=== PATIENT | male | born 1995 | race Hispanic/Latino ===

== ENCOUNTER → 2019-02-07 | Day surgery (SDC) | payer OTHER ==
[~2019-02-07] MED LIST: ACETAMINOPHEN325 M1 PO; BUPIVACAINE HCL 0.5% INJ 30 ML VIAL INJ ONE; CEFAZOLIN SOD 1 GM/NS 50ML 50 ML IV ONE; DEXAMETHASONE SOD PHOS INJ 4 MG/ML VIAL ONE; FENTANYL CITRATE/PF 100MCG/2 ML INJ ONE; HYDROMORPHONE 2MG/ML 2 MG/ML ML ONE; KETOROLAC TROMETHAMINE 30 MG/ML VIAL ONE; LIDOCAINE HCL 2% LOCAL INJ 5 ML SDV VIAL INJ ONE; METOCLOPRAMIDE HCL 10 MG/2ML VIAL ONE; MIDAZOLAM HCL 2 MG/2 ML VIAL ONE; ONDANSETRON HCL INJ 2MG/ML 2ML 2 MG/ML VIAL ONE; PROPOFOL IV EMULSION 10 MG/ML 20 ML VIAL ONE; SEVOFLURANE INHAL SOLN 250 ML PEN BTL ONE; TESTOSTERO100 MG/1 M IM; TYLENOL WITH C1 EACH PO; ZOFRAN8 MG PO
--- OUTSIDE RECORDS SUMMARY | 2019-02-07 09:58 | XMS REPORT ---
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 Conditions or Problems Problem Name Problem Code Onset Date Status Entry Date Provider Comment Standard Description Annotate Dyslipidemia 272.4 Active Jordan Norwood'Onofre ENGINE EMISSION TECHNICIAN-C Other and unspecified hyperlipidemia Prediabetes 790.29 Active Justin Ng ENGINE EMISSION TECHNICIAN Other abnormal glucose Vitamin D deficiency 268.9 Active Justin Sánchezarberg ENGINE EMISSION TECHNICIAN Unspecified vitamin D deficiency Hormone imbalance 259.9 Active Jordan Norwood'Onofre ENGINE EMISSION TECHNICIAN-C Unspecified endocrine disorder transmasculine Morbid obesity 278.01 Active Justin Ng ENGINE EMISSION TECHNICIAN Morbid obesity Other specified counseling ICD-V65.49 Inactive Jordan Norwood'Onofre ENGINE EMISSION TECHNICIAN-C Prolonged menstruation ICD-626.2 Inactive Jordan Elier Enma'Onofre ENGINE EMISSION TECHNICIAN-C Hormone disorder 259.9 Inactive Justin Ng ENGINE EMISSION TECHNICIAN Unspecified endocrine disorder Hx of anemia ICD-V12.3 Inactive Jordan Elier Enma'Onofre ENGINE EMISSION TECHNICIAN-C Other specified counseling V65.49 Resolved Jordan Norwood'Onofre ENGINE EMISSION TECHNICIAN-C Other specified counseling Prolonged menstruation 626.2 Resolved Jordan Norwood'Onofre ENGINE EMISSION TECHNICIAN-C Excessive or frequent menstruation Hx of anemia V12.3 Resolved Jordan Elire Low ENGINE EMISSION TECHNICIAN-C Personal history of diseases of blood and blood-forming organs Medication List Medication Instructions Start Date Stop Date Generic Name NDC Status Provider Patient Instruction BD ECLIPSE SYRINGE 25G X 5/8" 1 ML use as directed SYRINGE/NEEDLE (DISP) 85030783032 Active Justin Ng ENGINE EMISSION TECHNICIAN Active TESTOSTERONE CYPIONATE 200 MG/ML INTRAMUSCULAR SOLUTION Inject 100mg (0.5mL) SC weekly TESTOSTERONE CYPIONATE 49657540174 Active Jordan Low ENGINE EMISSION TECHNICIAN-C Active VITAMIN D (ERGOCALCIFEROL) 16823 UNIT ORAL CAPSULE One tablet by mouth once per week ERGOCALCIFEROL [id number] Active Jordan Low ENGINE EMISSION TECHNICIAN-C Active Immunizations Vaccine Administration Date Value Standard Description Human Papillomavirus vaccine (Gardasil) #3, (HPV #3) given human papilloma virus vaccine, quadrivalent Human Papillomavirus vaccine (Gardasil) #3, (HPV #3) Drug Name Gardasil 9 human papilloma virus vaccine, quadrivalent Human Papillomavirus vaccine (Gardasil) #2, (HPV #2) given human papilloma virus vaccine, quadrivalent Human Papillomavirus vaccine (Gardasil) #2, (HPV #2) Drug Name Gardasil 9 human papilloma virus vaccine, quadrivalent Human Papilloma Virus Vaccine (Gardasil) (HPV 1) Administration Date given human papilloma virus vaccine, quadrivalent Vital Signs Date Name Value Unit Range Description blood pressure, diastolic - 8462-4 72 mm[Hg] BP fan blood pressure, systolic - 8480-6 119 mm[Hg] BP sys height E&M - 8302-2 65 [in_us] Bdy height pulse rate E&M - 8867-4 64 /min Heart rate temperature E&M 98.1 [degF] Body temperature weight E&M - 3141-9 229 [lb_av] Weight Measured height E&M - 8302-2 65 [in_us] Bdy height temperature E&M 98.5 [degF] Body temperature weight E&M - 3141-9 214 [lb_av] Weight Measured Diagnostic Results Date Name Value Unit Range Description Lab Report: CBC With Differential/Platelet, Comp. Metabolic Panel (14), ... - Chemistry thyroid stimulating hormone, serum 2.130 u[iU]/mL 0.450-4.500 Lab Report: Comp. Metabolic Panel (14), CBC, Platelet, No Differential, ... - Chemistry very low density lipoproteins 18 mg/dL 5-40 testosterone, total 787 ng/dL 264-916 Lab Report: HCV Antibody, RPR, Rfx Qn RPR/Confirm TP, Panel [id number], HBsA ... - Chemistry hepatitis B surface antigen Negative Negative Lab Report: Comp. Metabolic Panel (14), CBC, Platelet, No Differential, ... - Chemistry chloride, serum 102 mmol/L 96-106 urea nitrogen, blood 12 mg/dL 6-20 Lab Report: Comp. Metabolic Panel (14), CBC, Platelet, No Differential, ... - Hematology mean corpuscular hemoglobin concentration, RBC 33.0 G/DL % 31.5-35.7 erythrocyte (RBC) count 5.34 X10E6/UL 10*6/mm3 4.14-5.80 Lab Report: HCV Antibody, RPR, Rfx Qn RPR/Confirm TP, Panel [id number], HBsA ... - Serology hepatitis C antibody, serum <0.1 0.0-0.9 Lab Report: CBC With Differential/Platelet, Comp. Metabolic Panel (14), ... - Chemistry Absolute Neutrophils 7.5 X10E3/UL 10*3/uL 1.4-7.0 Lab Report: Comp. Metabolic Panel (14), CBC, Platelet, No Differential, ... - Chemistry LDL cholesterol, serum 136 mg/dL 0-99 urea nitrogen/creatinine ratio, serum 14 9-20 Lab Report: Comp. Metabolic Panel (14), CBC, Platelet, No Differential, ... - Hematology mean corpuscular volume, RBC 86 fL 79-97 Lab Report: Comp. Metabolic Panel (14), CBC, Platelet, No Differential, ... - Chemistry HDL cholesterol, serum 40 mg/dL >39 Lab Report: CBC With Differential/Platelet, Comp. Metabolic Panel (14), ... - Hematology monocytes as percent of blood leukocytes 6 % Not Estab. Lab Report: Comp. Metabolic Panel (14), CBC, Platelet, No Differential, ... - Chemistry creatinine, serum 0.84 mg/dL 0.76-1.27 albumin/globulin ratio, serum 1.4 1.2-2.2 cholesterol, serum 194 mg/dL 037-712 2013/11/09 bilirubin, serum, total 0.5 mg/dL 0.0-1.2 Lab Report: CBC With Differential/Platelet, Comp. Metabolic Panel (14), ... - Hematology Eosinophil Absolute Count 0.3 X10E3/UL 10*3/uL 0.0-0.4 Lab Report: Comp. Metabolic Panel (14), CBC, Platelet, No Differential, ... - Chemistry aspartate aminotransferase (SGOT), serum 18 U/L 0-40 Lab Report: Comp. Metabolic Panel (14), CBC, Platelet, No Differential, ... - Hematology red blood cell distribution width 13.7 % 12.3-15.4 leukocyte count, blood 8.4 X10E3/UL 10*3/mm3 3.4-10.8 Lab Report: Comp. Metabolic Panel (14), CBC, Platelet, No Differential, ... - Chemistry potassium, serum 5.1 mmol/L 3.5-5.2 albumin, serum 4.6 g/dL 3.5-5.5 Lab Report: CBC With Differential/Platelet, Comp. Metabolic Panel (14), ... - Chemistry immature granulocytes, percentage of total cells, blood 0 % Not Estab. Lab Report: CBC With Differential/Platelet, Comp. Metabolic Panel (14), ... - Hematology lymphocyte count, blood, automated 2.6 X10E3/UL 10*3/mm3 0.7-3.1 Lab Report: Comp. Metabolic Panel (14), CBC, Platelet, No Differential, ... - Hematology hematocrit, blood 46.0 % 37.5-51.0 Lab Report: Comp. Metabolic Panel (14), CBC, Platelet, No Differential, ... - Chemistry sodium, serum 139 mmol/L 134-144 Lab Report: CBC With Differential/Platelet, Comp. Metabolic Panel (14), ... - Hematology neutrophils as percent of blood leukocytes 69 % Not Estab. basophils as percent of blood leukocytes 0 % Not Estab. Lab Report: RPR, Rfx Qn RPR/Confirm TP - Serology rapid plasma reagin antibody, serum Non Reactive Non Reactive Lab Report: Comp. Metabolic Panel (14), CBC, Platelet, No Differential, ... - Chemistry carbon dioxide, venous blood 24 mmol/L 20-29 triglyceride, serum, fasting 89 mg/dL 0-149 calcium, serum 9.6 mg/dL 8.7-10.2 alanine aminotransferase (SGPT), serum 17 U/L 0-44 Lab Report: Comp. Metabolic Panel (14), CBC, Platelet, No Differential, ... - Hematology mean corpuscular hemoglobin, RBC 28.5 pg 26.6-33.0 Lab Report: Comp. Metabolic Panel (14), CBC, Platelet, No Differential, ... - Chemistry protein, total, serum 7.8 g/dL 6.0-8.5 alkaline phosphatase, serum 67 U/L 39-117 Lab Report: Comp. Metabolic Panel (14), CBC, Platelet, No Differential, ... - Hematology hemoglobin, blood 15.2 g/dL 13.0-17.7 Lab Report: CBC With Differential/Platelet, Comp. Metabolic Panel (14), ... - Hematology lymphocytes as percent of blood leukocytes 23 % Not Estab. Lab Report: CBC With Differential/Platelet, Comp. Metabolic Panel (14), ... - Chemistry hemoglobin A1C, blood, as % of total hemoglobin 5.3 % 4.8-5.6 Lab Report: Comp. Metabolic Panel (14), CBC, Platelet, No Differential, ... - Genetics/fertility eGFR if 143 mL/min/1.73m2 >59 Lab Report: CBC With Differential/Platelet, Comp. Metabolic Panel (14), ... - Hematology basophil count, absolute 0.0 x10E3/uL 0.0-0.2 Lab Report: Comp. Metabolic Panel (14), CBC, Platelet, No Differential, ... - Chemistry globulin, serum 3.2 1.5-4.5 Estimated Glomerular Filtration Rate (calc) 123 mL/min/1.73m2 >59 vitamin D 25-hydroxy, serum 25.3 ng/mL 30.0-100.0 testosterone, serum, free 22.8 pg/mL 9.3-26.5 Lab Report: CBC With Differential/Platelet, Comp. Metabolic Panel (14), ... - Hematology eosinophils as percent of blood leukocytes 2 % Not Estab. Lab Report: Comp. Metabolic Panel (14), CBC, Platelet, No Differential, ... - Chemistry blood glucose, random 101 mg/dL 65-99 Lab Report: CBC With Differential/Platelet, Comp. Metabolic Panel (14), ... - Hematology monocyte count, blood, automated 0.7 X10E3/UL 10*3/uL 0.1-0.9 Lab Report: Comp. Metabolic Panel (14), CBC, Platelet, No Differential, ... - Hematology platelet count 365 X10E3/UL 10*3/mm3 150-379 Encounters Date Encounter Provider Code Facility 09:25:14 CONCRETE BATCH PLANT OPERATOR Est Patient Exp Problem - 75624 Jordan Low ENGINE EMISSION TECHNICIAN-C CPT-45603 [facility] 16:16:20 CDT Est Patient Exp Problem - 92815 Jordan Low ENGINE EMISSION TECHNICIAN-C CPT-57432 [facility] 10:31:38 CDT Est Patient Exp Problem - 39418 Justin Ng [facility] CPT-09454 [facility] 10:21:04 CDT Est Patient Exp Problem - 94082 Justin Ng [facility] CPT-00567 [facility] 14:51:43 CONCRETE BATCH PLANT OPERATOR Est Patient Nurse - Only Visit - 48611 Sultana Moss RN CPT-86094 [facility] 10:39:30 CONCRETE BATCH PLANT OPERATOR Est Patient Exp Problem - 56336 Justin Ng [facility] CPT-39410 [facility] 10:33:05 CONCRETE BATCH PLANT OPERATOR Est Patient Problem Focus - 74254 Justin Ng [facility] CPT-92376 [facility] 11:37:05 CDT New Patient Comprehensive - 00075 Justin Ng [facility] CPT-29712 [facility] Procedures Code Procedure Name Date Entry Date Standard Description CPT-03859 Gardasil - HPV 11:37:26 CDT CPT-06914 Gardasil - HPV 11:37:26 CDT CPT-72939 Gardasil - HPV 11:37:26 CDT CPT-77168 Handling of specimen for transfer 11:37:08 CDT CPT-17784 Venipuncture 11:37:08 CDT
--- OUTSIDE RECORDS SUMMARY | 2019-02-07 09:58 | XMS REPORT ---
Author Author [facility] Address Unknown Phone Unavailable Care Team Providers Care Supervisor Accounts Receivable Name Role Phone Unavailable Unavailable Payers Payer Name Policy Type Policy Number Effective Date Expiration Date Problems This patient has no known problems. Allergies, Adverse Reactions, Alerts Allergy Name Allergy Type Status Severity Reaction(s) Onset Date Inactive Date Treating Clinician Comments No Known Allergies DA Active U 2019-01-28 00:00:00 Medications This patient has no known medications. Results Test Description Test Time Test Comments Text Results Atomic Results Result Comments COMPREHENSIVE METABOLIC PANEL 2019-01-28 20:20:00 SODIUM (test code=NA) 140 mmol/L 136-145 POTASSIUM (test code=K) 4.2 mmol/L 3.5-5.1 CHLORIDE (test code=CL) 108.0 mmol/L 98-107 CARBON DIOXIDE (test code=CO2) 27.0 mmol/L 21-32 ANION GAP (test code=GAP) 9.2 10-20 GLUCOSE (test code=GLU) 91 mg/dL 74-106 BLOOD UREA NITROGEN (test code=BUN) 18 mg/dL 7-18 GLOMERULAR FILTRATION RATE (test code=GFR) > 60 mL/min >=60 Estimated GFR by using Modified MDRD formula.Chronic kidney disease is defined as either kidney damageor GFR <60 mL/min/1.73 m2 for >3 months. CREATININE (test code=CREAT) 1.00 mg/dL 0.7-1.3 BUN/CREATININE RATIO (test code=BUN/CREA) 18.0 10-20 TOTAL PROTEIN (test code=PROT) 8.6 gram/dL 6.4-8.2 ALBUMIN (test code=ALB) 4.2 g/dL 3.4-5.0 GLOBULIN (test code=GLOB) 4.4 gram/dL 2.7-4.2 ALBUMIN/GLOBULIN RATIO (test code=A/G) 1.0 0.75-1.50 CALCIUM (test code=CA) 9.5 mg/dL 8.5-10.1 BILIRUBIN TOTAL (test code=BILT) 0.40 mg/dL 0.0-1.0 SGOT/AST (test code=AST) 24 IUnit/L 15-37 SGPT/ALT (test code=ALT) 33 IUnit/L 12-78 ALKALINE PHOSPHATASE TOTAL (test code=ALKP) 65 IUnit/L 45-117 Note change in reference range due to change in reagent. CREATINE KINASE (CK)2019-01-28 20:20:00* Test Item Value Reference Range Comments CREATINE KINASE (CK) (test code=CK) 249 IUnit/L 26-208 COMPREHENSIVE METABOLIC [id number] 20:09:00* Test Item Value Reference Range Comments SODIUM (test code=NA) 140 mmol/L 136-145 POTASSIUM (test code=K) 4.2 mmol/L 3.5-5.1 CHLORIDE (test code=CL) 108.0 mmol/L 98-107 CARBON DIOXIDE (test code=CO2) mmol/L 21-32 ANION GAP (test code=GAP) 10-20 GLUCOSE (test code=GLU) mg/dL 74-106 BLOOD UREA NITROGEN (test code=BUN) mg/dL 7-18 GLOMERULAR FILTRATION RATE (test code=GFR) mL/min >=60 CREATININE (test code=CREAT) mg/dL 0.7-1.3 BUN/CREATININE RATIO (test code=BUN/CREA) 10-20 TOTAL PROTEIN (test code=PROT) gram/dL 6.4-8.2 ALBUMIN (test code=ALB) g/dL 3.4-5.0 GLOBULIN (test code=GLOB) gram/dL 2.7-4.2 ALBUMIN/GLOBULIN RATIO (test code=A/G) 0.75-1.50 CALCIUM (test code=CA) mg/dL 8.5-10.1 BILIRUBIN TOTAL (test code=BILT) mg/dL 0.0-1.0 SGOT/AST (test code=AST) IUnit/L 15-37 SGPT/ALT (test code=ALT) IUnit/L 12-78 ALKALINE PHOSPHATASE TOTAL (test code=ALKP) IUnit/L 45-117 CREATINE KINASE (CK)2019-01-28 20:09:00* Test Item Value Reference Range Comments CREATINE KINASE (CK) (test code=CK) IUnit/L 26-208 - XR ANKLE 3 + V [id number] 19:53:00 FAX: Charlee Anderson MD [phone] [place]: St: REG Name: TRICE LINO [facility] : [birth year] Age/S: 24/M [address] [facility] Unit #: [id number] Loc: [place] [address] Phys: Charlee Anderson MD Acct: [id number] Dis Date: Status: REG ER PHONE #: [phone] Exam Date: 01/28/20191933 FAX #: [phone] Reason: pain, trauma, crush EXAMS: CPT CODE: [id number] XR ANKLE 3 + V LT [address]32 HISTORY: pain, trauma, crush TECHNIQUE: AP, oblique, and lateral views of the left ankle. COMPARISON: None FINDINGS: Acute nondisplaced ve rtical fracture of the medial malleolus. Acute nondisplaced oblique young l fracture of the distal fibula. Ankle mortise is symmetric. Talar dome is normal in contour. Ankle soft tissue swelling. IM PRESSION: Acute nondisplaced bimalleolar ankle fracture. Multi ple tiny radiopaque foreign bodies within the lateral ankle soft tissues . at 1953 Reported and signed by: Sandra Masters D.O. CC: Charlee Anderson MD Technologist: VAIBHAV ONOFRE RT(R) Trnnyrd Date/Time/By: 9 (1952) : By: [email or web address] Orig Print D/T: S: 01/28/2019 (1955) PAGE 1 Signed Report - XR TIBIA/FIBULA 2 V [id number] 19:53:00 FAX: Charlee Anderson MD [phone] [place]: St: REG Name: TRICE LINO [facility] : [birth year] Age/S: 24/M [address] [facility] Unit #: [id number] Loc: [place] [address] Phys: Charlee Anderson MD Acct: [id number] Dis Date: Status: REG ER PHONE #: [phone] Exam Date: 01/28/20191929 FAX #: [phone] Reason: pain, trauma, crush EXAMS: CPT CODE: [id number] XR TIBIA/FIBULA 2 [place] [address] CLINICAL HISTORY: pain, trauma, crush TECHNIQUE: AP and lateral views of the left tibia/fibula COMPARISON: None FINDINGS: Acute nondisplaced vertical fracture of the medial malleolus. Acute nondisplaced oblique c oronal fracture of the distal fibula. Bony trabecular pattern is unremarka ble. No cortical destruction or periosteal reaction. Knee and ankle joints do not appear dislocated. Regional soft tissues are unremarkable. IMPRESSION: Acute nondisplaced bimalleolar an kle fracture. Multiple tiny radiopaque foreign bodies within the lateral ankle soft tissues. Electronically Signed by Sandra Masters D.O. on 12/2018 at 1952 Reported and signed by: Sandra Masters D.O. CC: Charlee Anderson MD Te chnologist: LEA ONOFRE RT(R) Trnscrd Date/ Time/By: 01/28/2019 (1952) : By: [email or web address] Orig Print D/T: S: 01/29/20 (1955) PAGE 1 Signed Report CBC W/AUTO [id number] 19:25:00* Test Item Value Reference Range Comments WHITE BLOOD CELL (test code=WBC) 10.4 K/mm3 4.5-12.5 RED BLOOD CELL (test code=RBC) 5.38 mill/mm3 4.0-5.8 HEMOGLOBIN (test code=HGB) 14.9 gram/dL 13.0-17.5 HEMATOCRIT (test code=HCT) 46.4 % 42.0-52.0 MEAN CELL VOLUME (test code=MCV) 86.2 fL 80-98 MEAN CELL HGB (test code=MCH) 27.7 picogram 27.0-33.0 MEAN CELL HGB CONCETRATION (test code=MCHC) 32.1 gram/dL 33.0-36.0 RED CELL DISTRIBUTION WIDTH (test code=RDW) 13.3 % 11.6-16.2 RED CELL DISTRIBUTION WIDTH SD (test code=RDW-SD) 41.6 fL 37.0-51.0 PLATELET COUNT (test code=PLT) 358 K/mm3 150-450 MEAN PLATELET VOLUME (test code=MPV) 8.8 fL 6.7-11.0 NEUTROPHIL % (test code=NT%) 58.0 % 39.0-69.0 IMMATURE GRANULOCYTE % (test code=IG%) 0.4 % 0.0-5.0 LYMPHOCYTE % (test code=LY%) 29.7 % 25.0-55.0 MONOCYTE % (test code=MO%) 7.9 % 0.0-10.0 EOSINOPHIL % (test code=EO%) 3.7 % 0.0-5.0 BASOPHIL % (test code=BA%) 0.3 % 0.0-1.0 NUCLEATED RBC % (test code=NRBC%) 0.0 % 0-0 NEUTROPHIL # (test code=NT#) 6.01 K/mm3 1.8-7.7 IMMATURE GRANULOCYTE # (test code=IG#) 0.04 x10 3/uL 0-0.03 LYMPHOCYTE # (test code=LY#) 3.08 K/mm3 1.0-5.0 MONOCYTE # (test code=MO#) 0.82 K/mm3 0-0.8 EOSINOPHIL # (test code=EO#) 0.38 K/mm3 0.0-0.5 BASOPHIL # (test code=BA#) 0.03 K/mm3 0.0-0.2 NUCLEATED RBC # (test code=NRBC#) 0.00 K/mm3 0.0-0.1 MANUAL DIFF REQUIRED (test code=MDIFF) NO CBC W/AUTO [id number] 19:23:00* Test Item Value Reference Range Comments WHITE BLOOD CELL (test code=WBC) K/mm3 4.5-12.5 RED BLOOD CELL (test code=RBC) mill/mm3 4.0-5.8 HEMOGLOBIN (test code=HGB) 14.9 gram/dL 13.0-17.5 HEMATOCRIT (test code=HCT) 46.4 % 42.0-52.0 MEAN CELL VOLUME (test code=MCV) fL 80-98 MEAN CELL HGB (test code=MCH) picogram 27.0-33.0 MEAN CELL HGB CONCETRATION (test code=MCHC) gram/dL 33.0-36.0 RED CELL DISTRIBUTION WIDTH (test code=RDW) % 11.6-16.2 RED CELL DISTRIBUTION WIDTH SD (test code=RDW-SD) fL 37.0-51.0 PLATELET COUNT (test code=PLT) K/mm3 150-450 MEAN PLATELET VOLUME (test code=MPV) fL 6.7-11.0 NEUTROPHIL % (test code=NT%) % 39.0-69.0 IMMATURE GRANULOCYTE % (test code=IG%) % 0.0-5.0 LYMPHOCYTE % (test code=LY%) % 25.0-55.0 MONOCYTE % (test code=MO%) % 0.0-10.0 EOSINOPHIL % (test code=EO%) % 0.0-5.0 BASOPHIL % (test code=BA%) % 0.0-1.0 NEUTROPHIL # (test code=NT#) K/mm3 1.8-7.7 LYMPHOCYTE # (test code=LY#) K/mm3 1.0-5.0 MONOCYTE # (test code=MO#) K/mm3 0-0.8 EOSINOPHIL # (test code=EO#) K/mm3 0.0-0.5 BASOPHIL # (test code=BA#) K/mm3 0.0-0.2
[2019-02-07 14:10] VITALS: BP 148/86
--- NOTE | 2019-02-07 17:28 | Operative Report ---
DATE OF PROCEDURE: 02/07/2019 SURGEON: Justin Coleman MD MGMT SPECIALIST: Leobardo Verma PA-C. PREOPERATIVE DIAGNOSIS: Left ankle bimalleolar fracture. POSTOPERATIVE DIAGNOSIS: Left ankle bimalleolar fracture. PROCEDURE: Open reduction and internal fixation of left ankle (medial and lateral). INDICATIONS: The patient is a 24-year-old gentleman, who sustained a bimalleolar left ankle fracture. We have discussed the findings and options and recommend open reduction with internal fixation. The risks and benefits have been discussed. The recovery has been explained. He has some superficial abrasions and we have discussed how this is going to impact our incisions and increase the potential for infection. He states he understands and wishes to proceed. PROCEDURE IN DETAIL: The patient was brought to the operating room and placed under general anesthetic. He received prophylactic antibiotics in the holding area. His left lower extremity was prepped and draped in a sterile manner. A preoperative time-out was performed. Initial attention was directed towards the distal fibula. The incision was made posterior to the abrasion. I was still able to expose the fracture site. This was reduced using a pair of lobster claw forceps. A 7-hole one-third semitubular plate was then fixed over the distal fibula. This was fixed with a combination of compression and locking screws. Intraoperative x-rays confirmed anatomic reduction and good positioning of the hardware. This wound was irrigated and closed with subcuticular Vicryl and nylon stitches. Attention was then directed towards the medial aspect. There was also a medial abrasion. We elected to fix this near percutaneously. A small incision was made over the tip of the medial malleolus. A digital reduction was performed. A partially threaded 4.0 mm cancellous screw was then placed across the fracture site. A secondary transverse screw was placed. Near anatomic reduction was obtained. The incisions were closed with nylon stitches. A sterile bandage was applied. He was placed back into his tib-fib orthosis so he could perform daily wound care. There was no blood loss and all needle and sponge counts were correct. Justin Coleamn MD DR/DOT /[id number]
== END | disposition home or self-care (01) ==
LOC: OR 09:53 → EDSEX 12:00
PROVIDERS: ATTEND Specialist
DX: S82.842A Displaced bimalleolar fracture of left lower leg, initial encounter for closed fracture (principal); N20.0 Calculus of kidney; W20.8XXA Other cause of strike by thrown, projected or falling object, initial encounter; Y93.89 Activity, other specified; Y92.009 Unspecified place in unspecified non-institutional (private) residence as the place of occurrence of the external cause; Y99.8 Other external cause status; Z68.36 Body mass index [BMI] 36.0-36.9, adult
CPT/HCPCS: 27814; 76000; C1713 ×5; J0690; J1100; J1170; J1885; J2001; J2250; J2405; J2704; J2765

== ENCOUNTER → 2020-12-17 | Outpatient (CLI) | payer OTHER ==
[~2020-12-17] MED LIST changes: -BUPIVACAINE HCL 0.5% INJ 30 ML VIAL INJ ONE; -CEFAZOLIN SOD 1 GM/NS 50ML 50 ML IV ONE; +COVID-19 VACC, MRNA(MODERNA)/PF 100 MCG/0.5 ML VIAL IM ONE; -DEXAMETHASONE SOD PHOS INJ 4 MG/ML VIAL ONE; -FENTANYL CITRATE/PF 100MCG/2 ML INJ ONE; -HYDROMORPHONE 2MG/ML 2 MG/ML ML ONE; -KETOROLAC TROMETHAMINE 30 MG/ML VIAL ONE; -LIDOCAINE HCL 2% LOCAL INJ 5 ML SDV VIAL INJ ONE; -METOCLOPRAMIDE HCL 10 MG/2ML VIAL ONE; -MIDAZOLAM HCL 2 MG/2 ML VIAL ONE; -ONDANSETRON HCL INJ 2MG/ML 2ML 2 MG/ML VIAL ONE; -PROPOFOL IV EMULSION 10 MG/ML 20 ML VIAL ONE; -SEVOFLURANE INHAL SOLN 250 ML PEN BTL ONE
== END ==
LOC: VACCPMC 12:36
DX: Z23 Encounter for immunization (principal); Z20.822 Contact with and (suspected) exposure to COVID-19
CPT/HCPCS: 91301

== ENCOUNTER → 2021-01-14 | Outpatient (CLI) | payer OTHER | END | disposition home or self-care (01) | LOC: VACCPMC 13:15 | DX: Z23 Encounter for immunization (principal); Z20.822 Contact with and (suspected) exposure to COVID-19 | CPT/HCPCS: 91301 ==

== ENCOUNTER 2022-03-10 04:07 | Emergency (ER) | payer OTHER ==
[~2022-03-10] VITALS: Ht 167.6 cm; Wt 81.6 kg
[~2022-03-10 04:07] MED LIST changes: -COVID-19 VACC, MRNA(MODERNA)/PF 100 MCG/0.5 ML VIAL IM ONE
[2022-03-10] MEDS ORDERED: KETOROLAC TROMETHAMINE 30 MG/ML VIAL IM STA (04:10)
[2022-03-10] MEDS ORDERED: NAPROXEN250 MG PO (04:12)
== END 2022-03-10 04:45 | disposition home or self-care (01) ==
LOC: ER 04:11
DX: M54.12 Radiculopathy, cervical region (principal); M25.511 Pain in right shoulder; Z79.899 Other long term (current) drug therapy
CPT/HCPCS: 99282; J1885